=== PATIENT | male | born 1935 | race Hispanic/Latino ===

== ENCOUNTER 2018-01-18 19:23 | Emergency (ER) | payer MEDICARE, OTHER ==
[2018-01-18 19:49] VITALS: BP 131/73; PULSE 64; TEMP 97.8; BMI 31.9
--- NOTE | 2018-01-18 19:54 | ED PDOC ---
Arrival/HPI <Puja Esposito - Last Filed: 01/18/18 19:49> <Jonathan Nice - Last Filed: 01/18/18 21:15> - General Time Seen by Provider: 01/18/18 19:26 - History of Present Illness Narrative History of Present Illness (Text): 01/18/18 19:49 Patient is an 82 year old male with past medical history of hypertension and hyperlipidemia who presents to the Emergency department after stepping on a anabelle nail 2 days ago. Patient says the nail went through his shoe and minimally punctured the skin on the bottom of his forefoot. Patient says he was not going to come in but his friend convinced him to come to get a tetanus shot. Patient does not recall having one recently but he did have one on . Patient denies any history of diabetes. Denies fever, chills, erythema in the surrounding area, excessive bleeding, numbness/tingling in the area, and pain surrounding the puncture site. (Puja Esposito) Past Medical History - Infectious Disease Hx of Infectious Diseases: None - Tetanus Immunization Tetanus Immunization: Unknown - Cardiac Hx Pacemaker: No - Neurological Hx Paralysis: No - Hematological/Oncological Hx Blood Transfusions: No Hx Blood Transfusion Reaction: No - Musculoskeletal/Rheumatological Hx Musculoskeletal Disorders: No - Gastrointestinal Other/Comment: Inguinal hernia - Psychiatric Hx Emotional Abuse: No Hx Physical Abuse: No Hx Substance Use: No - Surgical History Other/Comment: L shoulder sx. Back sx. corneal Transplant - Anesthesia Hx Anesthesia Reactions: No Hx Malignant Hyperthermia: No - Suicidal Assessment Feels Threatened In Home Enviroment: No <Puja Esposito - Last Filed: 01/18/18 19:49> Family/Social History Family/Social History: Unknown Family HX Smoking Status: Never Smoked Hx Alcohol Use: No Hx Substance Use: No <Puja Esposito - Last Filed: 01/18/18 19:49> Allergies/Home Meds <Puja Esposito - Last Filed: 01/18/18 19:49> <Jonathan Nice - Last Filed: 01/18/18 21:15> Allergies/Adverse Reactions: Allergies DUST Adverse Reaction (Uncoded 09/16/16 12:17) COUGH INK Adverse Reaction (Uncoded 09/16/16 12:17) COUGH Home Medications: Home Meds Medication Instructions Recorded Confirmed Atorvastatin [Lipitor] 10 mg PO DAILY 02/23/16 09/16/16 amLODIPine [Norvasc] 5 mg PO DAILY 02/23/16 09/16/16 Difluprednate [Durezol] 1 drop OU BID 09/16/16 09/16/16 Dorzolamide 2%/Timolol 0.5% 1 drp OS BID 09/16/16 09/16/16 [Cosopt 2%-0.5% Opht] Review of Systems - Physician Review All systems were reviewed & negative as marked: Yes - Review of Systems Constitutional: Normal. absent: Fevers, Night Sweats Respiratory: Normal. absent: SOB Cardiovascular: Normal. absent: Chest Pain, Palpitations, Edema, Calf Pain Gastrointestinal: Normal. absent: Abdominal Pain Musculoskeletal: Normal. absent: Arthralgias, Joint Swelling, Myalgias Skin: Skin Lesions (puncture wound of bottom of left foot). absent: Rash, Pruritis, Abscess, Ulcer, Cellulitis Neurological: absent: Headache, Dizziness <Puja Esposito - Last Filed: 01/18/18 19:49> Physical Exam Temperature: Afebrile Blood Pressure: Normal Pulse: Regular Respiratory Rate: Normal Appearance: Positive for: Well-Appearing, Non-Toxic, Comfortable Pain Distress: None Mental Status: Positive for: Alert and Oriented X 3 - Systems Exam Head: Present: Atraumatic, Normocephalic Pupils: Present: PERRL Extroacular Muscles: Present: EOMI Conjunctiva: Present: Normal Mouth: Present: Moist Mucous Membranes Neck: Present: Normal Range of Motion Respiratory/Chest: Present: Clear to Auscultation Cardiovascular: Present: Regular Rate and Rhythm, Normal S1, S2. No: Murmurs Back: Present: Normal Inspection Upper Extremity: Present: Normal Inspection. No: Cyanosis, Edema Lower Extremity: Present: NORMAL PULSES, Normal ROM, Tenderness (directly over a small superficial puncture wound on the bottom of the left forefoot), Neurovascularly Intact, Capillary Refill < 2 s. No: Edema, CALF TENDERNESS, Cyanosis, Swelling, Erythema, Deformity Neurological: Present: GCS=15, Speech Normal Skin: Present: Warm, Dry, Normal Color. No: Rashes Psychiatric: Present: Alert, Oriented x 3, Normal Insight, Normal Concentration <Puja Esposito - Last Filed: 01/18/18 19:49> Vital Signs Temp Pulse Resp BP Pulse Ox 01/18/18 20:13 18 99 01/18/18 19:35 97.8 F 64 20 131/73 95 Medical Decision Making <Puja Esposito - Last Filed: 01/18/18 19:49> <Jonathan Nice - Last Filed: 01/18/18 21:15> ED Course and Treatment: 01/18/18 19:58 Patient is up to date on tetanus. Will discharge with Keflex. Plan discussed with Dr. Nice. (Puja Esposito) Patient Seen With Resident: In agreement with resident note which contains more details about the patient. Patient was seen and evaluated with resident. Came up with plan and treatment together. An 82 year old male presents to the emergency department s/p stepping on a nail. Additional HPI as noted by resident. On physical exam, patient has small superficial puncture wound and tenderness on the bottom of left forefoot, neurovascularly intact. Tetanus shot up to date. Patient was discharged with Keflex. (Jonathan Nice) - PA / POLITICAL ANTHROPOLOGIST / Resident Statement MD/DO has reviewed & agrees with the documentation as recorded. MD/DO has examined the patient and agrees with the treatment plan. <Puja Esposito - Last Filed: 01/18/18 19:49> - Scribe Statement The provider has reviewed the documentation as recorded by the Scribe <Jonathan Nice - Last Filed: 01/18/18 21:15> - Scribe Statement Chavo Aquino Provider Scribe Attestation: All medical record entries made by the Scribe were at my direction and personally dictated by me. I have reviewed the chart and agree that the record accurately reflects my personal performance of the history, physical exam, medical decision making, and the department course for this patient. I have also personally directed, reviewed, and agree with the discharge instructions and disposition. (Jonathan Nice) Disposition/Present on Arrival - Present on Arrival Any Indicators Present on Arrival: No History of DVT/PE: No History of Uncontrolled Diabetes: No Urinary Catheter: No History of Decub. Ulcer: No History Surgical Site Infection Following: None - Disposition Have Diagnosis and Disposition been Completed?: Yes Disposition Time: 20:00 <Puja Esposito - Last Filed: 01/18/18 19:49> <Jonathan Nice - Last Filed: 01/18/18 21:15> - Disposition Diagnosis: Puncture wound of foot without foreign body Disposition: HOME/ ROUTINE Condition: STABLE Discharge Instructions (ExitCare): Tetanus (DC) Additional Instructions: Please take Keflex 500 mg by mouth twice daily for 7 days. Return to the Emergency department if yoru experience any new or worsening symptoms. Prescriptions: Cephalexin [Keflex] 500 mg PO BID #14 capsule Referrals: Michaela Hercules MD [Primary Care Provider] - Follow up with primary Forms: [employer] ([place]ic)
[2018-01-18 20:14] VITALS: RESP 18; O2SAT 99
== END 2018-01-18 20:13 | disposition home or self-care (01) ==
LOC: ED 19:23
DX: S91.332A Puncture wound without foreign body, left foot, initial encounter (principal); W45.0XXA Nail entering through skin, initial encounter; Y92.9 Unspecified place or not applicable

== ENCOUNTER 2018-08-30 09:11 | Outpatient (CLI) | payer MEDICARE, OTHER | END 2018-08-30 09:12 | disposition home or self-care (01) | LOC: RAD 09:11 ==